=== PATIENT | female | born 1945 | race Caucasian/White ===

== ENCOUNTER → 2020-11-18 | Outpatient (CLI) | payer OTHER ==
[~2020-11-18] MED LIST: APIX5TAB PO; METO25TA6 PO; NITR0.4T SL; PRAV20TA4 PO
== END | disposition home or self-care (01) ==
LOC: RAH 14:19
PROVIDERS: ATTEND Family Medicine
DX: M25.561 Pain in right knee (principal)
CPT/HCPCS: 73562

== ENCOUNTER → 2020-11-29 | Outpatient (CLI) | payer OTHER | END | disposition home or self-care (01) | LOC: SHCH 15:08 | PROVIDERS: ATTEND Internal Medicine Cardiovascular Disease | DX: R07.9 Chest pain, unspecified (principal); R06.09 Other forms of dyspnea; I48.0 Paroxysmal atrial fibrillation | CPT/HCPCS: 93306; 93356 ==

== ENCOUNTER → 2020-12-03 | Outpatient (CLI) | payer OTHER ==
[~2020-12-03] VITALS: Ht 167.6 cm; Wt 123.4 kg
[~2020-12-03] MED LIST changes: +REGADENOSON 0.4 MG/5 ML PF SYG IVP SCH
== END | disposition home or self-care (01) ==
LOC: SHCH 08:02
PROVIDERS: ATTEND Internal Medicine Cardiovascular Disease
DX: I20.9 Angina pectoris, unspecified (principal)
CPT/HCPCS: 78452; 93017; 96374; A9500 ×2

== ENCOUNTER 2021-02-28 07:13 | Day surgery (SDC) | payer OTHER ==
[2021-02-26 09:20] VITALS: BP 120/92
[2021-02-26 09:46] LABS: HEMATOCRIT 48.1 % (36-48); LYMPHOCYTES % (AUTO) 34.3 % (21.0-51.0); MEAN CORPUSCULAR HGB CONC 33.1 g/dL (32.0-36.0); MEAN CORPUSCULAR VOLUME 87.8 fL (79-99); MONOCYTES % (AUTO) 9.6 % (3.0-13.0); NEUTROPHILS % (AUTO) 51.8 % (40.0-77.0); PLATELET COUNT (AUTO) 238 K/uL (130-400); RED BLOOD CELL COUNT(AUTO) 5.48 MIL/uL (4.00-5.50); RED CELL DISTRIBUTION WIDTH 12.6 % (11.0-15.5); WHITE BLOOD COUNT (AUTO) 5.9 K/uL (4.8-10.8)
[2021-02-26 09:54] LABS: POTASSIUM 4.6 mmol/L (3.5-5.1)
[~2021-02-28] VITALS: Ht 170.2 cm; Wt 120.5 kg
[2021-02-28] VITALS (12 sets, daily range): BP systolic 97–137; BP diastolic 59–90
[~2021-02-28 07:13] MED LIST changes: +FLEC50TA3 PO; -REGADENOSON 0.4 MG/5 ML PF SYG IVP SCH
[2021-02-28] MEDS ORDERED: 0.9%NACL 1000ML 1,000 ML IV ONE (08:29)
[2021-02-28] MEDS ORDERED: SUCCINYLCHOLINE 200MG/10ML SYR ONE (09:13)
[2021-02-28] MEDS ORDERED: PROPOFOL 10 MG/ML 20ML VIAL IV ONE (09:13)
== END 2021-02-28 10:35 | disposition home or self-care (01) ==
LOC: DAH 07:13
PROVIDERS: ATTEND Internal Medicine Cardiovascular Disease
DX: I48.19 Other persistent atrial fibrillation (principal); Z20.822 Contact with and (suspected) exposure to COVID-19; I10 Essential (primary) hypertension; E66.01 Morbid (severe) obesity due to excess calories; E78.5 Hyperlipidemia, unspecified; Z82.49 Family history of ischemic heart disease and other diseases of the circulatory system; Z68.41 Body mass index [BMI] 40.0-44.9, adult; Z79.01 Long term (current) use of anticoagulants; Z79.899 Other long term (current) drug therapy
CPT/HCPCS: 36415; 80048; 85025; 87635; 92960; 93005 ×2; A4215; A4216; A4221; A4222; A4223 ×3; A4606; A4663; C9803; J0330; J2704; J7030

== ENCOUNTER 2021-03-28 07:23 | Day surgery (SDC) | payer OTHER ==
[2021-03-26 12:19] LABS: BASOPHILS % (AUTO) 0.8 % (0.0-5.0); EOSINOPHILS % (AUTO) 2.6 % (0.0-8.0); HEMATOCRIT 47.1 % (36-48); LYMPHOCYTES % (AUTO) 35.1 % (21.0-51.0); MEAN CORPUSCULAR HEMOGLOBIN 29.3 pg (27.0-33.0); MEAN CORPUSCULAR HGB CONC 33.1 g/dL (32.0-36.0); MEAN CORPUSCULAR VOLUME 88.5 fL (79-99); MONOCYTES % (AUTO) 9.8 % (3.0-13.0); NEUTROPHILS % (AUTO) 51.5 % (40.0-77.0); PLATELET COUNT (AUTO) 239 K/uL (130-400); RED BLOOD CELL COUNT(AUTO) 5.32 MIL/uL (4.00-5.50); WHITE BLOOD COUNT (AUTO) 6.1 K/uL (4.8-10.8)
[2021-03-26 12:41] LABS: POTASSIUM 4.1 mmol/L (3.5-5.1)
[2021-03-27 09:33] VITALS: BP 145/90
[2021-03-28] VITALS (9 sets, daily range): BP systolic 110–121; BP diastolic 63–86
[~2021-03-28] VITALS: Ht 167.6 cm; Wt 121.9 kg
[~2021-03-28 07:23] MED LIST changes: -FLEC50TA3 PO; +[UNRECOGNIZED DRUG - OTHER] PO; +juice plus PO
[2021-03-28] MEDS ORDERED: PROPOFOL 10 MG/ML 20ML VIAL IV ONE (08:24)
[2021-03-28] MEDS ORDERED: 0.9%NACL 1000ML 1,000 ML IV ONE (10:29)
== END 2021-03-28 09:35 | disposition home or self-care (01) ==
LOC: DAH 07:23
PROVIDERS: ATTEND Internal Medicine Cardiovascular Disease
DX: I48.19 Other persistent atrial fibrillation (principal); Z20.822 Contact with and (suspected) exposure to COVID-19; E66.01 Morbid (severe) obesity due to excess calories; E78.5 Hyperlipidemia, unspecified; Z79.01 Long term (current) use of anticoagulants; Z79.899 Other long term (current) drug therapy; Z98.890 Other specified postprocedural states; Z82.49 Family history of ischemic heart disease and other diseases of the circulatory system; Z68.41 Body mass index [BMI] 40.0-44.9, adult
CPT/HCPCS: 36415; 80048; 85025; 87635; 92960; 93005 ×2; A4215; A4221; A4222; A4223 ×2; A4606; A4663; C9803; J2704; J7030

== ENCOUNTER 2021-10-03 06:44 | Day surgery (SDC) | payer OTHER ==
[2021-10-01 11:52] LABS: BASOPHILS % (AUTO) 1.2 % (0.0-5.0); EOSINOPHILS % (AUTO) 2.7 % (0.0-8.0); HEMATOCRIT 50.8 % (36-48); MEAN CORPUSCULAR HEMOGLOBIN 29.2 pg (27.0-33.0); MEAN CORPUSCULAR HGB CONC 33.1 g/dL (32.0-36.0); MEAN CORPUSCULAR VOLUME 88.2 fL (79-99); MONOCYTES % (AUTO) 9.8 % (3.0-13.0); NEUTROPHILS % (AUTO) 60.1 % (40.0-77.0); PLATELET COUNT (AUTO) 224 K/uL (130-400); RED BLOOD CELL COUNT(AUTO) 5.76 MIL/uL (4.00-5.50); RED CELL DISTRIBUTION WIDTH 12.9 % (11.0-15.5)
[2021-10-01 12:00] LABS: POTASSIUM 4.1 mmol/L (3.5-5.1)
[2021-10-01 12:04] LABS: INR 1.09 (0.85-1.15); PROTHROMBIN TIME 11.8 SEC (9.6-11.6)
[2021-10-01 12:05] LABS: PARTIAL THROMBOPLASTIN TIME 31.2 SEC (26.3-35.5)
[2021-10-02 11:17] VITALS: BP 166/96
[~2021-10-03] VITALS: Ht 170.2 cm; Wt 123.6 kg
[2021-10-03] VITALS (18 sets, daily range): BP systolic 101–161; BP diastolic 62–95
[~2021-10-03 06:44] MED LIST changes: -[UNRECOGNIZED DRUG - OTHER] PO
[2021-10-03] MEDS ORDERED: 0.9%NACL 1000ML 1,000 ML IV SCH (08:00)
[2021-10-03] MEDS ORDERED: PROPOFOL 10 MG/ML 20ML VIAL IV ONE (08:03)
[2021-10-03] MEDS ORDERED: AMIODARONE 200 MG TABLET PO ONE ×2 (12:11→12:30)
== END 2021-10-03 13:35 | disposition home or self-care (01) ==
LOC: DAH 06:44 → CLH 06:44
PROVIDERS: ATTEND Internal Medicine Cardiovascular Disease
DX: I48.19 Other persistent atrial fibrillation (principal); Z20.822 Contact with and (suspected) exposure to COVID-19; I44.0 Atrioventricular block, first degree; E66.9 Obesity, unspecified; E78.5 Hyperlipidemia, unspecified; Z82.49 Family history of ischemic heart disease and other diseases of the circulatory system; Z68.27 Body mass index [BMI] 27.0-27.9, adult; Z98.890 Other specified postprocedural states; Z79.899 Other long term (current) drug therapy; Z79.01 Long term (current) use of anticoagulants
CPT/HCPCS: 36415; 80048; 85025; 85610; 85730; 87635; 92960; 93005 ×2; A4215; A4216; A4221; A4222; A4223 ×3; A4606; A4615; A4663; A7002; C9803; J2704; 99156; 99157

== ENCOUNTER → 2022-02-27 | Outpatient (CLI) | payer OTHER ==
[~2022-02-27] MED LIST changes: -METO25TA6 PO
== END | disposition home or self-care (01) ==
LOC: RAH 08:56
PROVIDERS: ATTEND Family Medicine
DX: R51.9 Headache, unspecified (principal); S09.90XA Unspecified injury of head, initial encounter; Z79.01 Long term (current) use of anticoagulants; X58.XXXA Exposure to other specified factors, initial encounter; Y93.89 Activity, other specified; Y92.89 Other specified places as the place of occurrence of the external cause; Y99.8 Other external cause status
CPT/HCPCS: 70450

== ENCOUNTER → 2022-09-28 | Outpatient (CLI) | payer OTHER ==
[~2022-09-28] MED LIST changes: +GADOTERATE MEGLUMINE 10 MMOL/20 ML VIAL IV ONE
== END | disposition home or self-care (01) ==
LOC: RAH 13:47
PROVIDERS: ATTEND Family Medicine
DX: R42 Dizziness and giddiness (principal); Z79.01 Long term (current) use of anticoagulants
CPT/HCPCS: 70553; A9575

== ENCOUNTER → 2022-12-03 | Outpatient (CLI) | payer OTHER ==
[~2022-12-03] MED LIST changes: -GADOTERATE MEGLUMINE 10 MMOL/20 ML VIAL IV ONE
== END | disposition home or self-care (01) ==
LOC: SHCH 14:13
PROVIDERS: ATTEND Internal Medicine Cardiovascular Disease
DX: I35.8 Other nonrheumatic aortic valve disorders (principal); I48.0 Paroxysmal atrial fibrillation; I11.9 Hypertensive heart disease without heart failure
CPT/HCPCS: 93306

== ENCOUNTER → 2023-01-06 | Outpatient (CLI) | payer OTHER ==
[~2023-01-06] MED LIST changes: +ALBUTEROL 0.083% 2.5 MG/3 ML INH IH ONE
[2023-01-06 09:48] LABS: BASOPHILS % (AUTO) 1.1 % (0.0-5.0); EOSINOPHILS % (AUTO) 3.8 % (0.0-8.0); HEMATOCRIT 46.8 % (36-48); LYMPHOCYTES % (AUTO) 36.8 % (21.0-51.0); MEAN CORPUSCULAR HEMOGLOBIN 29.1 pg (27.0-33.0); MEAN CORPUSCULAR HGB CONC 32.3 g/dL (32.0-36.0); MEAN CORPUSCULAR VOLUME 90.2 fL (79-99); MONOCYTES % (AUTO) 10.6 % (3.0-13.0); NEUTROPHILS % (AUTO) 47.5 % (40.0-77.0); PLATELET COUNT (AUTO) 213 K/uL (130-400); RED BLOOD CELL COUNT(AUTO) 5.19 MIL/uL (4.00-5.50); RED CELL DISTRIBUTION WIDTH 13.1 % (11.0-15.5); WHITE BLOOD COUNT (AUTO) 5.5 K/uL (4.8-10.8)
[2023-01-06 10:15] LABS: ALBUMIN 3.7 g/dL (3.5-5.0); CREATININE 1.1 mg/dL (0.5-1.5); MAGNESIUM 2.1 mg/dL (1.80-2.40); POTASSIUM 4.6 mmol/L (3.5-5.1); THYROID STIMULATING HORMONE 2.48 uIU/mL (0.36-3.74); TOTAL PROTEIN, SERUM 7.1 g/dL (6.0-8.3)
== END | disposition home or self-care (01) ==
LOC: RESP 08:58
PROVIDERS: ATTEND Internal Medicine Cardiovascular Disease
DX: I48.19 Other persistent atrial fibrillation (principal); R06.02 Shortness of breath
CPT/HCPCS: 36415; 80053; 83735; 84443; 85025; 94060; 94727; 94729

== ENCOUNTER → 2023-01-29 | Outpatient (CLI) | payer OTHER ==
[~2023-01-29] MED LIST changes: -ALBUTEROL 0.083% 2.5 MG/3 ML INH IH ONE; +REGADENOSON 0.4 MG/5 ML PF SYG IVP ONE
== END | disposition home or self-care (01) ==
LOC: SHCH 08:36
PROVIDERS: ATTEND Internal Medicine Cardiovascular Disease
DX: I20.9 Angina pectoris, unspecified (principal); R07.9 Chest pain, unspecified; R00.1 Bradycardia, unspecified; R06.09 Other forms of dyspnea
CPT/HCPCS: 78452; 96374; 93017; J2785; A9500 ×2

== ENCOUNTER → 2023-11-13 | Outpatient (CLI) | payer OTHER ==
[~2023-11-13] MED LIST changes: -REGADENOSON 0.4 MG/5 ML PF SYG IVP ONE
== END | disposition home or self-care (01) ==
LOC: SHCH 15:35
PROVIDERS: ATTEND Internal Medicine Cardiovascular Disease
DX: I51.7 Cardiomegaly (principal); I51.89 Other ill-defined heart diseases; I42.2 Other hypertrophic cardiomyopathy; Q21.12 Patent foramen ovale
CPT/HCPCS: 93306

== ENCOUNTER 2024-01-01 00:14 | Emergency (ER) | payer OTHER ==
[~2024-01-01] VITALS: Ht 170.2 cm; Wt 119.7 kg
[2024-01-01 02:20] LABS: BASOPHILS # (AUTO) 0.05 K/uL (0.00-0.20); BASOPHILS % (AUTO) 0.8 % (0.0-5.0); EOSINOPHILS # (AUTO) 0.29 K/uL (0.00-0.70); EOSINOPHILS % (AUTO) 4.4 % (0.0-8.0); HEMATOCRIT 43.8 % (36-48); IMMATURE GRANULOCYTE ABSOLUTE 0.01 K/uL (0-1); LYMPHOCYTES # (AUTO) 1.7 K/uL (1.0-4.8); LYMPHOCYTES % (AUTO) 25.6 % (21.0-51.0); MEAN CORPUSCULAR HEMOGLOBIN 30.1 pg (27.0-33.0); MEAN CORPUSCULAR HGB CONC 32.9 g/dL (32.0-36.0); MEAN CORPUSCULAR VOLUME 91.4 fL (79-99); MONOCYTES # (AUTO) 0.7 K/uL (0.1-1.0); MONOCYTES % (AUTO) 9.8 % (3.0-13.0); NEUTROPHILS # (AUTO) 3.9 K/uL (1.8-7.7); NEUTROPHILS % (AUTO) 59.2 % (40.0-77.0); PLATELET COUNT (AUTO) 207 K/uL (130-400); RED BLOOD CELL COUNT(AUTO) 4.79 MIL/uL (4.00-5.50); RED CELL DISTRIBUTION WIDTH 12.7 % (11.0-15.5); WHITE BLOOD COUNT (AUTO) 6.6 K/uL (4.8-10.8)
[2024-01-01 02:27] LABS: CREATININE 1.1 mg/dL (0.5-1.0); POTASSIUM 4.6 mmol/L (3.5-5.1)
[2024-01-01] MEDS: 0.9% NACL 500ML IV.SOLN 500 ML IV ONE (02:28)
[2024-01-01] MEDS: ACETAMINOPHEN 500 MG TABLET PO ONE (02:28)
[2024-01-01 08:06] VITALS: BP 135/55; PULSE 51; RESP 16; O2SAT 98
[2024-01-01] MEDS ORDERED: OXYC-38 PO (08:22)
== END 2024-01-01 08:28 | disposition home or self-care (01) ==
LOC: EDH 00:14
DX: S09.8XXA Other specified injuries of head, initial encounter (principal); I48.91 Unspecified atrial fibrillation; E11.9 Type 2 diabetes mellitus without complications; Z79.899 Other long term (current) drug therapy; Z79.01 Long term (current) use of anticoagulants; V89.2XXA Person injured in unspecified motor-vehicle accident, traffic, initial encounter; Y93.I9 Activity, other involving external motion; Y92.488 Other paved roadways as the place of occurrence of the external cause; Y99.8 Other external cause status
CPT/HCPCS: 99291; 70450; 96360; 80048; 85025; 36415; 72125; 71250; 74176; J7040

== ENCOUNTER 2024-01-17 06:50 | Day surgery (SDC) | payer OTHER ==
[2024-01-13 10:58] LABS: BASOPHILS # (AUTO) 0.06 K/uL (0.00-0.20); BASOPHILS % (AUTO) 1.2 % (0.0-5.0); EOSINOPHILS # (AUTO) 0.26 K/uL (0.00-0.70); EOSINOPHILS % (AUTO) 5.2 % (0.0-8.0); HEMATOCRIT 45.1 % (36-48); IMMATURE GRANULOCYTE ABSOLUTE 0.01 K/uL (0-1); LYMPHOCYTES # (AUTO) 1.6 K/uL (1.0-4.8); LYMPHOCYTES % (AUTO) 32.9 % (21.0-51.0); MEAN CORPUSCULAR HEMOGLOBIN 29.6 pg (27.0-33.0); MEAN CORPUSCULAR VOLUME 89.7 fL (79-99); MONOCYTES # (AUTO) 0.5 K/uL (0.1-1.0); MONOCYTES % (AUTO) 9.9 % (3.0-13.0); NEUTROPHILS # (AUTO) 2.5 K/uL (1.8-7.7); NEUTROPHILS % (AUTO) 50.6 % (40.0-77.0); PLATELET COUNT (AUTO) 214 K/uL (130-400); RED BLOOD CELL COUNT(AUTO) 5.03 MIL/uL (4.00-5.50); RED CELL DISTRIBUTION WIDTH 12.9 % (11.0-15.5)
[2024-01-13 11:02] LABS: CREATININE 1.1 mg/dL (0.5-1.0); POTASSIUM 4.1 mmol/L (3.5-5.1)
[2024-01-13 11:06] LABS: INR <= 0.93 (0.85-1.15); PROTHROMBIN TIME 10.9 SEC (9.6-11.6)
[2024-01-13 11:07] LABS: PARTIAL THROMBOPLASTIN TIME 30.1 SEC (26.3-35.5)
[2024-01-13 11:22] VITALS: BP 164/81; PULSE 55; RESP 19
[2024-01-17] VITALS (10 sets, daily range): BP systolic 108–147; BP diastolic 54–79; PULSE 53–62; RESP 13–23
[~2024-01-17] VITALS: Ht 165.1 cm; Wt 120.9 kg
[~2024-01-17 06:50] MED LIST changes: +AMIO200T68 PO; +CALCIUM PO; +CHOND PO; +CRAN500T4 PO; +GLUCOS PO; +MECLIZINE PO; +VITAMIN D PO; +VITAMIN D3 PO; +[UNRECOGNIZED DRUG - CODE] PO
[2024-01-17] MEDS: 0.9%NACL 1000ML 1,000 ML IV ONE (07:22)
[2024-01-17] MEDS ORDERED: CEFAZOLIN SODIUM 1 GM VIAL ONE (08:58)
[2024-01-17] MEDS ORDERED: BUPIVACAINE/PF 0.25% 30ML VIAL IJ ONE (08:58)
[2024-01-17] MEDS ORDERED: MIDAZOLAM HCL 1 MG/ML 2ML VIAL ONE ×3 (08:58→09:31)
[2024-01-17] MEDS ORDERED: LIDOCAINE HCL 1% MDV 50ML VIAL ONE (08:58)
[2024-01-17] MEDS ORDERED: MEPERIDINE-PF 25 MG/ML SYG ONE ×3 (08:58→09:31)
[2024-01-17] MEDS ORDERED: TRAM50TA4 PO (10:48)
[2024-01-17] MEDS ORDERED: ACETAMINOPHEN 500 MG TABLET PO PRN (11:00)
[2024-01-17] MEDS ORDERED: ACETAMINOPHEN WITH CODEINE 1 TAB TAB PO PRN (11:00)
== END 2024-01-17 14:30 | disposition home or self-care (01) ==
LOC: DAH 06:50
PROVIDERS: ATTEND Internal Medicine Cardiovascular Disease
DX: I49.5 Sick sinus syndrome (principal); I45.89 Other specified conduction disorders; R94.39 Abnormal result of other cardiovascular function study; I95.1 Orthostatic hypotension; E66.9 Obesity, unspecified; Z68.41 Body mass index [BMI] 40.0-44.9, adult; Z83.3 Family history of diabetes mellitus; Z80.1 Family history of malignant neoplasm of trachea, bronchus and lung; Z80.0 Family history of malignant neoplasm of digestive organs; Z82.49 Family history of ischemic heart disease and other diseases of the circulatory system; Z79.899 Other long term (current) drug therapy; Z95.0 Presence of cardiac pacemaker; Z98.890 Other specified postprocedural states
CPT/HCPCS: 80048; 85025; 85610; 85730; 36415; 93005; 33208; 71045; C1785; C1898 ×2; J0690; J7030; J0665; J2250 ×3; J2175 ×3; J3490; A4215; A6251; A4222; A4221; A4663; A4216; A6258; A4606; A4223 ×3; 99156; 99157

== ENCOUNTER → 2024-07-10 | Outpatient (CLI) | payer OTHER ==
[~2024-07-10] VITALS: Ht 167.6 cm; Wt 118.1 kg
[~2024-07-10] MED LIST changes: +TRAM50TA4 PO; +[UNRECOGNIZED DRUG - OTHER] PO; +clotrimazole AD
[2024-07-10 09:20] LABS: BASOPHILS # (AUTO) 0.05 K/uL (0.00-0.20); BASOPHILS % (AUTO) 0.8 % (0.0-5.0); EOSINOPHILS # (AUTO) 0.31 K/uL (0.00-0.70); EOSINOPHILS % (AUTO) 4.7 % (0.0-8.0); HEMATOCRIT 46.2 % (36-48); IMMATURE GRANULOCYTE ABSOLUTE 0.02 K/uL (0-1); LYMPHOCYTES % (AUTO) 30.3 % (21.0-51.0); MEAN CORPUSCULAR HEMOGLOBIN 29.4 pg (27.0-33.0); MEAN CORPUSCULAR HGB CONC 32.3 g/dL (32.0-36.0); MEAN CORPUSCULAR VOLUME 91.3 fL (79-99); MONOCYTES # (AUTO) 0.7 K/uL (0.1-1.0); MONOCYTES % (AUTO) 10.3 % (3.0-13.0); NEUTROPHILS # (AUTO) 3.6 K/uL (1.8-7.7); NEUTROPHILS % (AUTO) 53.6 % (40.0-77.0); PLATELET COUNT (AUTO) 222 K/uL (130-400); RED BLOOD CELL COUNT(AUTO) 5.06 MIL/uL (4.00-5.50); WHITE BLOOD COUNT (AUTO) 6.6 K/uL (4.8-10.8)
[2024-07-10 09:21] LABS: APPEARANCE,URINE CLOUDY (CLEAR); BILIRUBIN,URINE NEGATIVE (NEGATIVE); COLOR,URINE YELLOW (YELLOW); GLUCOSE, URINE (UA) NEGATIVE (NEGATIVE); KETONES,URINE NEGATIVE (NEGATIVE); LEUKOCYTE ESTERASE ,URINE 500 Leu/uL (NEGATIVE); NITRATE,URINE 2+ (NEGATIVE); OCCULT BLOOD,URINE NEGATIVE (NEGATIVE); PH,URINE 6.5 (5.0-8.0); PROTEIN,URINE NEGATIVE (NEGATIVE); UROBILINOGEN,URINE 0.2 mg/dL (0.2-1.0)
[2024-07-10 09:26] LABS: ADD UA MICROSCOPIC YES
[2024-07-10 09:29] LABS: INR 1.02 (0.85-1.15); POTASSIUM 4.1 mmol/L (3.5-5.1); PROTHROMBIN TIME 11.4 SEC (9.6-11.6)
[2024-07-10 09:31] LABS: BACTERIA,URINE RARE /HPF (None Seen); MUCUS,URINE RARE LPF (None Seen); SQUAMOUS EPITHELIAL CELL,UR FEW /HPF (0-2)
[2024-07-10 09:42] VITALS: BP 191/92; PULSE 100; RESP 18; TEMP 97.6
[2024-07-10 09:43] LABS: B-TYPE NATRIURETIC PEPTIDE 82 pg/mL (0-100)
--- NOTE | 2024-07-10 09:54 | EKG ---
[facility] Test Date: 2024-07-10 Test Time: 10:05:11 Pat Name: LATRICIA BULLARD Department: [facility] Room: Gender: F Rack Pusher: [id number] : 1945 Requested By: MARIZOL GARCIA Order Number: [id number] Reading MD: Juancarlos Baca Measurements Intervals [place] Rate: 70 P: 0 HI: 196 QRS: -14 QRSD: 106 T: 9 QT: 429 QTc: 463 Interpretive Statements Atrial-paced complexes Compared to ECG 01/13/2024 10:41:51 Sinus rhythm no longer present First degree AV block no longer present Electronically Signed On 07-10-2024 21:09:56 LATIN PROFESSOR by Juancarlos Baca Please click the below link to view image of tracing.
--- NOTE | 2024-07-10 11:24 | HMCIMG ---
CHEST 1VW HISTORY: Preop COMPARISON: 01/17/2000 FINDINGS: A frontal projection of the chest was obtained. No acute pulmonary infiltrates is seen. The heart is borderline enlarged. Pacemaker is seen entering from the left. Hiatal hernia is seen. No evidence of aortic calcification is seen. IMPRESSION: 1. No acute pulmonary infiltrate is seen. Hiatal hernia.
--- NOTE | 2024-07-10 16:21 | NUR ---
verified called john velasco to verify when to hold eliquis. pt needs to hold starting this evening. pt left message. will wait for call back Addendum: 07/10/24 at 1637 by CHARAN BALES RN RN pt notified of above and voiced understanding.
== END | disposition home or self-care (01) ==
LOC: DAH 10:00 → EDSTATUS 07-12 08:00
PROVIDERS: ATTEND Internal Medicine Cardiovascular Disease
DX: Z01.818 Encounter for other preprocedural examination (principal); I44.0 Atrioventricular block, first degree; I20.0 Unstable angina; K44.9 Diaphragmatic hernia without obstruction or gangrene; I49.1 Atrial premature depolarization; R94.31 Abnormal electrocardiogram [ECG] [EKG]; Z79.899 Other long term (current) drug therapy; Z95.1 Presence of aortocoronary bypass graft; I48.0 Paroxysmal atrial fibrillation
CPT/HCPCS: 36415; 71045; 80048; 81001; 83880; 85025; 85610; 85730; 87086; 87186; 93005

== ENCOUNTER → 2024-08-11 | Outpatient (CLI) | payer OTHER ==
[~2024-08-11] VITALS: Ht 168.9 cm; Wt 119.2 kg
[~2024-08-11] MED LIST changes: -AMIO200T68 PO; +CALC-1125 PO; +FOLI0.8T22 PO; +GLUC-29 PO; +MECL-226 PO; +MV-M1TAB20 PO; -TRAM50TA4 PO; -[UNRECOGNIZED DRUG - CODE] PO
[2024-08-11 10:49] VITALS: BP 164/82; PULSE 80; RESP 14; TEMP 97.5
[2024-08-11 10:52] LABS: BASOPHILS # (AUTO) 0.06 K/uL (0.00-0.20); BASOPHILS % (AUTO) 1.3 % (0.0-5.0); EOSINOPHILS # (AUTO) 0.21 K/uL (0.00-0.70); EOSINOPHILS % (AUTO) 4.5 % (0.0-8.0); HEMATOCRIT 43.5 % (36-48); LYMPHOCYTES # (AUTO) 1.5 K/uL (1.0-4.8); LYMPHOCYTES % (AUTO) 31.4 % (21.0-51.0); MEAN CORPUSCULAR HEMOGLOBIN 29.6 pg (27.0-33.0); MEAN CORPUSCULAR HGB CONC 32.9 g/dL (32.0-36.0); MEAN CORPUSCULAR VOLUME 90.1 fL (79-99); MONOCYTES # (AUTO) 0.5 K/uL (0.1-1.0); MONOCYTES % (AUTO) 11.5 % (3.0-13.0); NEUTROPHILS # (AUTO) 2.4 K/uL (1.8-7.7); NEUTROPHILS % (AUTO) 51.3 % (40.0-77.0); PLATELET COUNT (AUTO) 193 K/uL (130-400); RED BLOOD CELL COUNT(AUTO) 4.83 MIL/uL (4.00-5.50); RED CELL DISTRIBUTION WIDTH 12.6 % (11.0-15.5); WHITE BLOOD COUNT (AUTO) 4.7 K/uL (4.8-10.8)
[2024-08-11 11:05] LABS: POTASSIUM 4.6 mmol/L (3.5-5.1)
[2024-08-11 11:07] LABS: INR 1.01 (0.85-1.15); PROTHROMBIN TIME 11.3 SEC (9.6-11.6)
[2024-08-11 11:08] LABS: PARTIAL THROMBOPLASTIN TIME 32.2 SEC (26.3-35.5)
--- NOTE | 2024-08-11 11:09 | EKG ---
[facility] Test Date: 2024-08-11 Test Time: 11:37:46 Pat Name: LATRICIA BULLARD Department: [facility] Room: Gender: F Restaurant Lead: [id number] : 1945 Requested By: VALENTINO VERDUZCO Order Number: [id number] Reading MD: Benjamín Serrano Measurements Intervals [place] Rate: 69 P: -78 MD: 196 QRS: 31 QRSD: 107 T: 23 QT: 446 QTc: 474 Interpretive Statements Sinus or ectopic atrial rhythm Atrial premature complex Compared to ECG 07/10/2024 10:05:11 Ectopic atrial rhythm now present Atrial premature complex(es) now present Atrial-paced complex(es) or rhythm no longer present Electronically Signed On 08-12-2024 07:59:55 INBOUND SALES MANAGER by Benjamín Serrano Please click the below link to view image of tracing.
== END ==
LOC: EDSTATUS 10:00 → DAH 12:03
PROVIDERS: ATTEND Internal Medicine Cardiovascular Disease
DX: I48.0 Paroxysmal atrial fibrillation (principal)
CPT/HCPCS: 36415; 80048; 85025; 85610; 85730; 93005

== ENCOUNTER → 2025-06-11 | Outpatient (CLI) | payer OTHER ==
[~2025-06-11] MED LIST changes: -CALC-1125 PO; -CALCIUM PO; -CHOND PO; -CRAN500T4 PO; -GLUC-29 PO; -GLUCOS PO; +ISOS30TA92 PO; -MECL-226 PO; -MECLIZINE PO; -MV-M1TAB20 PO; -NITR0.4T SL; -PRAV20TA4 PO; +PRAV20TA59 PO; -VITAMIN D PO; -VITAMIN D3 PO; -[UNRECOGNIZED DRUG - OTHER] PO; -clotrimazole AD; -juice plus PO
--- NOTE | 2025-06-13 11:29 | HMCIMG ---
DOUBLE CONTRAST UPPER GI SERIES: Finding: The study was performed using provocative maneuvers After swallowing effervescent crystal and thick barium, there is no definite intrinsic or extrinsic lesion seen in the esophagus. The there is a moderate-sized hiatal hernia with grade 1 esophageal reflux. Stomach is normal in size, shape, and configuration. The rugal folds appear to be normal. The duodenal bulb, duodenal sweep, and upper jejunum appear to be normal. Fluoroscopy time: 2.3 minutes. IMPRESSION: Moderate size hiatal hernia with grade 1 esophageal reflux Otherwise NORMAL DOUBLE CONTRAST UPPER GI SERIES.
== END | disposition home or self-care (01) ==
LOC: RAH 08:51
PROVIDERS: ATTEND Internal Medicine Gastroenterology
DX: K21.9 Gastro-esophageal reflux disease without esophagitis (principal); K44.9 Diaphragmatic hernia without obstruction or gangrene; K22.2 Esophageal obstruction; R13.10 Dysphagia, unspecified
CPT/HCPCS: 74240